=== PATIENT | male | born 1960 | race Caucasian/White ===

== ENCOUNTER 2024-08-10 11:48 | Outpatient (CLI) | payer OTHER, SELFPAY ==
--- NOTE | 2024-08-10 12:00 | CRLHL7_ITS ---
For Patients: As a result of the Century Cures Act, medical imaging exams and procedure reports are released immediately into your electronic medical record. You may view this report before your referring provider. If you have questions, please contact your health care provider. Indication: Secondary malignant neoplasm bone Technique: Seven views pelvis and both hips Comparison: No outside comparisons are available Findings: Mixed sclerotic lesion within the right acetabulum appears to be present. There is no pathologic fracture. Subtle sclerotic focus within the intertrochanteric region of the right proximal femur is also suspected. Incidental soft tissue densities left proximal thigh. Mild degenerative joint disease. 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 No pathologic fracture. Dictated by Trae Ellis MD @ 08/10/2024 12:52:48 PM (Electronically Signed)
== END 2024-08-10 11:49 | disposition home or self-care (01) ==
LOC: RAD 11:54
PROVIDERS: Visit Provider Physician Assistant
DX: C79.51 Secondary malignant neoplasm of bone (principal)
CPT/HCPCS: 73521